=== PATIENT | male | born 1960 | race Caucasian/White ===

== ENCOUNTER 2021-04-08 08:12 | Inpatient (IN) ==
[2021-04-08] MEDS ORDERED: Morphine 4 MG/ML VIAL (1 ml) IV ONE ×2 (08:49→11:54)
[2021-04-08] MEDS ORDERED: Lactated Ringers 1000 ml BAG 1,000 ML IV ONE (08:49)
[2021-04-08 09:12] LABS: ABS Eosinophils 0.2 10^3/ul (0-0.6); ABS Lymphocytes 1.2 10^3/ul (1.0-4.8); ABS Monocytes 1.2 10^3/ul (0-0.8); ABS Neutrophils 10.9 10^3/ul (1.5-7.7); Eosinophil % 1.2 %; Hematocrit 38 % (42-52); Hemoglobin 12.8 g/dL (14.0-18.0); Lymphocyte % 8.7 %; Mean Corpuscular HGB Conc 34 g/dL (31-36); Mean Corpuscular Hemoglobin 29 pg (27-31); Mean Corpuscular Volume 86 fL (80-94); Mean Platelet Volume 7.7 fL (7.4-10.4); Platelet Count 406 10^3/uL (150-450); Red Blood Count 4.46 10^6 /uL (4.18-5.48); Red Cell Distribution Width 17 % (10-15); White Blood Count 13.5 10^3/uL (3.5-10.8)
[2021-04-08 09:19] LABS: Urine Appearance Cloudy; Urine Bilirubin Negative (Negative); Urine Blood Negative (Negative); Urine Color Amber; Urine Glucose Negative (Negative); Urine Ketones Negative (Negative); Urine Nitrite Negative (Negative); Urine Protein 1+(30 mg/dL) (Negative); Urine Specific Gravity 1.025 (1.002-1.030); Urine Urobilinogen Positive (Negative)
[2021-04-08 09:24] LABS: Urine Bacteria Absent (Absent); Urine Red Blood Cell Trace(0-2/hpf) (Absent); Urine Squamous Epithelial Cell Present (Absent); Urine White Blood Cell Trace(0-5/hpf) (Absent)
[2021-04-08 09:33] LABS: ALT 48 U/L (7-52); Albumin 3.3 g/dL (3.2-5.2); Albumin/Globulin Ratio 0.9 (1-3); Alkaline Phosphatase 93 U/L (35-149); Blood Urea Nitrogen 11 mg/dL (6-24); C Reactive Protein 202.83 mg/L (<8.01); CO2 Carbon Dioxide 27 mmol/L (22-32); Calcium 8.3 mg/dL (8.6-10.3); Chloride 100 mmol/L (101-111); EGFR African American 129.7 (>60); EGFR Non-African American 107.2 (>60); Globulin 3.7 g/dL (2-4); Glucose 113 mg/dL (70-100); Lipase 25 U/L (11.0-82.0); Sodium 137 mmol/L (135-145)
[2021-04-08 09:37] LABS: Anion Gap 10 mmol/L (2-11); Troponin I 0.03 ng/mL (<0.03)
[2021-04-08] MEDS ORDERED: Iohexol 300 (CONTRAST) 10 ML SDV IV ONE (09:40)
[2021-04-08 10:16] LABS: Potassium Redraw 3.1 mmol/L (3.5-5.0)
[2021-04-08] MEDS ORDERED: Piperacillin/Tazobac ADVAN 3.375 GM in NS 0.9% 100 ml BAG 100 ML IV ONE (11:21)
[2021-04-08] MEDS ORDERED: Heparin 5000 UNITS/ML 1 mL VIAL SUBCUT SCH (14:00)
[2021-04-08] MEDS: NS 0.9% 1000 ml BAG 1,000 ML IV SCH (18:04)
[2021-04-08] MEDS: Morphine 2 MG/ML SYRINGE IV PRN (18:04)
[2021-04-08] MEDS ORDERED: Zosyn per Pharmacy NOTE FOLLOW UP SCH (19:00)
[2021-04-08] MEDS ORDERED: ZOSYN 3.375 GM x ONE DOSE over 30 miuntes IV (19:30)
[2021-04-08] MEDS ORDERED: Potassium Chlor 20 meq TAB.ER PO ONE (19:32)
[2021-04-09] MEDS: ZOSYN 3.375 GM Q8H per EXTENDED INFUSION IV SCH ×3 (00:17→17:21)
[2021-04-09] MEDS: NS 0.9% 1000 ml BAG 1,000 ML IV SCH ×2 (05:25→14:15)
[2021-04-09 06:29] LABS: Hematocrit 34 % (42-52); Hemoglobin 11.3 g/dL (14.0-18.0); Mean Corpuscular HGB Conc 33 g/dL (31-36); Mean Corpuscular Hemoglobin 29 pg (27-31); Mean Corpuscular Volume 86 fL (80-94); Mean Platelet Volume 7.3 fL (7.4-10.4); Platelet Count 338 10^3/uL (150-450); Red Blood Count 3.96 10^6 /uL (4.18-5.48); Red Cell Distribution Width 17 % (10-15); White Blood Count 12.5 10^3/uL (3.5-10.8)
[2021-04-09 06:58] LABS: Anion Gap 9 mmol/L (2-11); Blood Urea Nitrogen 10 mg/dL (6-24); C Reactive Protein 202.75 mg/L (<8.01); CO2 Carbon Dioxide 27 mmol/L (22-32); Calcium 7.6 mg/dL (8.6-10.3); Chloride 101 mmol/L (101-111); EGFR African American 116.8 (>60); EGFR Non-African American 96.6 (>60); Glucose 97 mg/dL (70-100); Sodium 137 mmol/L (135-145)
[2021-04-09] MEDS: Aspirin EC 81 mg TAB.EC (enteric coated) PO SCH (08:03)
[2021-04-09] MEDS: Morphine 2 MG/ML SYRINGE IV PRN (08:18)
[2021-04-09] MEDS: KCL 20 MEQ/100 ML IVPREMIX 20 MEQ/100 ML BAG IV SCH ×2 (09:21→11:49)
[2021-04-09] MEDS ORDERED: HYDROmorphone 1 MG/1 ML SYRINGE IV SCH (14:00)
[2021-04-09] MEDS ORDERED: Potassium Chlor 20 meq TAB.ER PO ONE (16:34)
[2021-04-09 17:00] LABS: Total Iron Binding Capacity 148 mcg/dL (250-450); Transferrin 106 mg/dL (203-362)
[2021-04-09 17:04] LABS: % Iron Saturation 14 % (15-55); Iron < 20 ug/dL (50-212); Unsaturated Iron Binding < 133 ug/dL
[2021-04-09 19:32] LABS: ABS Eosinophils 0.1 10^3/ul (0-0.6); ABS Lymphocytes 0.9 10^3/ul (1.0-4.8); ABS Monocytes 0.7 10^3/ul (0-0.8); ABS Neutrophils 8.6 10^3/ul (1.5-7.7); Eosinophil % 0.6 %; Hematocrit 35 % (42-52); Hemoglobin 11.7 g/dL (14.0-18.0); Lymphocyte % 9.1 %; Mean Corpuscular HGB Conc 34 g/dL (31-36); Mean Corpuscular Hemoglobin 29 pg (27-31); Mean Corpuscular Volume 86 fL (80-94); Mean Platelet Volume 7.1 fL (7.4-10.4); Platelet Count 323 10^3/uL (150-450); Red Blood Count 4.03 10^6 /uL (4.18-5.48); Red Cell Distribution Width 17 % (10-15); White Blood Count 10.3 10^3/uL (3.5-10.8)
[2021-04-09 19:45] LABS: EGFR African American 116.8 (>60); EGFR Non-African American 96.6 (>60)
[2021-04-09 19:58] LABS: Activated Partial Thrombo Time 32.4 seconds (26.0-38.0); INR 1.41 (0.86-1.15)
[2021-04-09] MEDS: Heparin 5000 UNITS/ML 1 mL VIAL SUBCUT SCH (21:43)
[2021-04-09] MEDS: HYDROmorphone 1 MG/1 ML SYRINGE IV PRN (21:44)
[2021-04-10] MEDS: ZOSYN 3.375 GM Q8H per EXTENDED INFUSION IV SCH ×3 (02:03→18:07)
[2021-04-10] MEDS: Heparin 5000 UNITS/ML 1 mL VIAL SUBCUT SCH ×3 (06:09→21:59)
[2021-04-10] MEDS: HYDROmorphone 1 MG/1 ML SYRINGE IV PRN ×2 (06:15→19:39)
[2021-04-10 06:23] LABS: ABS Eosinophils 0.1 10^3/ul (0-0.6); ABS Lymphocytes 1.2 10^3/ul (1.0-4.8); ABS Monocytes 0.8 10^3/ul (0-0.8); ABS Neutrophils 7.7 10^3/ul (1.5-7.7); Eosinophil % 1.3 %; Hematocrit 34 % (42-52); Hemoglobin 11.3 g/dL (14.0-18.0); Lymphocyte % 11.8 %; Mean Corpuscular HGB Conc 33 g/dL (31-36); Mean Corpuscular Hemoglobin 29 pg (27-31); Mean Corpuscular Volume 87 fL (80-94); Mean Platelet Volume 7.1 fL (7.4-10.4); Platelet Count 306 10^3/uL (150-450); Red Blood Count 3.94 10^6 /uL (4.18-5.48); Red Cell Distribution Width 17 % (10-15); White Blood Count 9.8 10^3/uL (3.5-10.8)
[2021-04-10 06:47] LABS: C Reactive Protein 204.11 mg/L (<8.01); Calcium 7.7 mg/dL (8.6-10.3); EGFR African American 140.6 (>60); EGFR Non-African American 116.2 (>60); Potassium 3.1 mmol/L (3.5-5.0)
[2021-04-10] MEDS ORDERED: Potassium Chlor 20 meq TAB.ER PO ONE (07:30)
[2021-04-10] MEDS: Aspirin EC 81 mg TAB.EC (enteric coated) PO SCH (08:05)
[2021-04-10] MEDS: NS 0.9% 1000 ml BAG 1,000 ML IV SCH ×2 (08:10→22:07)
[2021-04-10] MEDS ORDERED: Perflutren Lipid Microsphere 3 ML VIAL ONE (10:17)
[2021-04-11] MEDS: ZOSYN 3.375 GM Q8H per EXTENDED INFUSION IV SCH ×3 (01:05→16:53)
[2021-04-11] MEDS: HYDROmorphone 1 MG/1 ML SYRINGE IV PRN ×3 (01:12→16:53)
[2021-04-11] MEDS: Heparin 5000 UNITS/ML 1 mL VIAL SUBCUT SCH ×3 (05:46→21:29)
[2021-04-11 06:25] LABS: ABS Eosinophils 0.1 10^3/ul (0-0.6); ABS Lymphocytes 1.4 10^3/ul (1.0-4.8); ABS Monocytes 0.6 10^3/ul (0-0.8); ABS Neutrophils 5.3 10^3/ul (1.5-7.7); Eosinophil % 1.1 %; Hematocrit 34 % (42-52); Hemoglobin 11.5 g/dL (14.0-18.0); Lymphocyte % 18.3 %; Mean Corpuscular HGB Conc 34 g/dL (31-36); Mean Corpuscular Hemoglobin 29 pg (27-31); Mean Corpuscular Volume 86 fL (80-94); Mean Platelet Volume 7.4 fL (7.4-10.4); Platelet Count 316 10^3/uL (150-450); Red Cell Distribution Width 17 % (10-15); White Blood Count 7.4 10^3/uL (3.5-10.8)
[2021-04-11 06:41] LABS: C Reactive Protein 155.4 mg/L (<8.01); Calcium 7.6 mg/dL (8.6-10.3); EGFR African American 120.3 (>60); EGFR Non-African American 99.4 (>60); Potassium 3.1 mmol/L (3.5-5.0)
[2021-04-11] MEDS ORDERED: Potassium Chlor 20 meq TAB.ER PO ONE (07:48)
[2021-04-11] MEDS: Aspirin EC 81 mg TAB.EC (enteric coated) PO SCH (08:00)
[2021-04-11] MEDS ORDERED: Iohexol 300 (CONTRAST) 10 ML SDV IV ONE (11:28)
[2021-04-11] MEDS: NS 0.9% 1000 ml BAG 1,000 ML IV SCH (16:53)
[2021-04-11] MEDS ORDERED: MORPHINE 30 MG PO PRN (18:13)
[2021-04-12] MEDS: HYDROcodone/ACETAMIN 5/325 mg TAB PO PRN ×4 (00:56→23:17)
[2021-04-12] MEDS: ZOSYN 3.375 GM Q8H per EXTENDED INFUSION IV SCH ×3 (00:57→17:04)
[2021-04-12 04:42] LABS: ABS Eosinophils 0.1 10^3/ul (0-0.6); ABS Lymphocytes 1.3 10^3/ul (1.0-4.8); ABS Monocytes 0.7 10^3/ul (0-0.8); Eosinophil % 1.5 %; Hematocrit 34 % (42-52); Hemoglobin 11.2 g/dL (14.0-18.0); Lymphocyte % 15.6 %; Mean Corpuscular HGB Conc 33 g/dL (31-36); Mean Corpuscular Hemoglobin 29 pg (27-31); Mean Corpuscular Volume 87 fL (80-94); Platelet Count 327 10^3/uL (150-450); Red Blood Count 3.93 10^6 /uL (4.18-5.48); Red Cell Distribution Width 17 % (10-15); White Blood Count 8.2 10^3/uL (3.5-10.8)
[2021-04-12] MEDS: Heparin 5000 UNITS/ML 1 mL VIAL SUBCUT SCH ×3 (06:38→23:18)
[2021-04-12] MEDS: Aspirin EC 81 mg TAB.EC (enteric coated) PO SCH (09:07)
[2021-04-12 09:12] LABS: Calcium 7.7 mg/dL (8.6-10.3); EGFR African American 123.9 (>60); EGFR Non-African American 102.4 (>60); Potassium 3.3 mmol/L (3.5-5.0)
[2021-04-12] MEDS: NS 0.9% 1000 ml BAG 1,000 ML IV SCH ×2 (09:12→17:04)
[2021-04-13] MEDS: ZOSYN 3.375 GM Q8H per EXTENDED INFUSION IV SCH ×3 (01:13→17:12)
[2021-04-13] MEDS: NS 0.9% 1000 ml BAG 1,000 ML IV SCH (01:31)
[2021-04-13] MEDS: HYDROcodone/ACETAMIN 5/325 mg TAB PO PRN ×2 (06:03→21:57)
[2021-04-13] MEDS: Heparin 5000 UNITS/ML 1 mL VIAL SUBCUT SCH ×3 (06:04→21:57)
[2021-04-13 06:38] LABS: ABS Eosinophils 0.1 10^3/ul (0-0.6); ABS Lymphocytes 1.3 10^3/ul (1.0-4.8); ABS Monocytes 0.8 10^3/ul (0-0.8); ABS Neutrophils 6.5 10^3/ul (1.5-7.7); Eosinophil % 1.2 %; Hematocrit 33 % (42-52); Hemoglobin 11.2 g/dL (14.0-18.0); Lymphocyte % 15.3 %; Mean Corpuscular HGB Conc 34 g/dL (31-36); Mean Corpuscular Hemoglobin 29 pg (27-31); Mean Corpuscular Volume 86 fL (80-94); Mean Platelet Volume 7.5 fL (7.4-10.4); Platelet Count 336 10^3/uL (150-450); Red Blood Count 3.89 10^6 /uL (4.18-5.48); Red Cell Distribution Width 17 % (10-15); White Blood Count 8.8 10^3/uL (3.5-10.8)
[2021-04-13 06:54] LABS: C Reactive Protein 117.15 mg/L (<8.01); Calcium 7.7 mg/dL (8.6-10.3); EGFR African American 115.2 (>60); EGFR Non-African American 95.2 (>60); Potassium 3.3 mmol/L (3.5-5.0)
[2021-04-13] MEDS ORDERED: HYDROcodone/ACETAMIN 5/325 mg TAB PO PRN (07:53)
[2021-04-13] MEDS ORDERED: Potassium Chlor 20 meq TAB.ER PO ONE (07:54)
[2021-04-13] MEDS: Aspirin EC 81 mg TAB.EC (enteric coated) PO SCH (09:15)
[2021-04-13] MEDS ORDERED: HYDROcodone/ACETAMIN 5/325 mg TAB PO ONE ×2 (15:00→15:02)
[2021-04-14] MEDS: ZOSYN 3.375 GM Q8H per EXTENDED INFUSION IV SCH ×3 (01:52→17:00)
[2021-04-14] MEDS: Heparin 5000 UNITS/ML 1 mL VIAL SUBCUT SCH ×3 (06:08→21:52)
[2021-04-14 06:28] LABS: ABS Eosinophils 0.1 10^3/ul (0-0.6); ABS Lymphocytes 1.3 10^3/ul (1.0-4.8); ABS Monocytes 0.7 10^3/ul (0-0.8); ABS Neutrophils 7.3 10^3/ul (1.5-7.7); Eosinophil % 1.3 %; Hematocrit 35 % (42-52); Hemoglobin 11.6 g/dL (14.0-18.0); Lymphocyte % 13.5 %; Mean Corpuscular HGB Conc 33 g/dL (31-36); Mean Corpuscular Hemoglobin 29 pg (27-31); Mean Corpuscular Volume 87 fL (80-94); Mean Platelet Volume 7.6 fL (7.4-10.4); Platelet Count 327 10^3/uL (150-450); Red Blood Count 4.02 10^6 /uL (4.18-5.48); Red Cell Distribution Width 17 % (10-15); White Blood Count 9.4 10^3/uL (3.5-10.8)
[2021-04-14] MEDS: HYDROcodone/ACETAMIN 5/325 mg TAB PO PRN ×3 (06:37→21:51)
[2021-04-14 06:43] LABS: C Reactive Protein 99.11 mg/L (<8.01); EGFR African American 104.8 (>60); EGFR Non-African American 86.6 (>60); Potassium 3.6 mmol/L (3.5-5.0)
[2021-04-14] MEDS: Aspirin EC 81 mg TAB.EC (enteric coated) PO SCH (08:44)
[2021-04-15] MEDS: ZOSYN 3.375 GM Q8H per EXTENDED INFUSION IV SCH ×3 (01:42→17:30)
[2021-04-15] MEDS: HYDROcodone/ACETAMIN 5/325 mg TAB PO PRN ×3 (05:57→21:04)
[2021-04-15] MEDS: Heparin 5000 UNITS/ML 1 mL VIAL SUBCUT SCH ×3 (05:58→21:05)
[2021-04-15 06:23] LABS: ABS Eosinophils 0.1 10^3/ul (0-0.6); ABS Lymphocytes 1.3 10^3/ul (1.0-4.8); ABS Monocytes 0.7 10^3/ul (0-0.8); ABS Neutrophils 8.1 10^3/ul (1.5-7.7); Hematocrit 37 % (42-52); Hemoglobin 12.2 g/dL (14.0-18.0); Lymphocyte % 12.7 %; Mean Corpuscular HGB Conc 33 g/dL (31-36); Mean Corpuscular Hemoglobin 29 pg (27-31); Mean Corpuscular Volume 87 fL (80-94); Mean Platelet Volume 7.2 fL (7.4-10.4); Platelet Count 359 10^3/uL (150-450); Red Blood Count 4.27 10^6 /uL (4.18-5.48); Red Cell Distribution Width 17 % (10-15); White Blood Count 10.3 10^3/uL (3.5-10.8)
[2021-04-15 06:44] LABS: EGFR African American 140.6 (>60); EGFR Non-African American 116.2 (>60); Potassium 3.6 mmol/L (3.5-5.0)
[2021-04-15] MEDS: Aspirin EC 81 mg TAB.EC (enteric coated) PO SCH (08:53)
[2021-04-15] MEDS ORDERED: COVID-19 VACCINE, MRNA(MODERNA)/PF 100 MCG/0.5 ML IM ONE (17:00)
[2021-04-16] MEDS: ZOSYN 3.375 GM Q8H per EXTENDED INFUSION IV SCH ×2 (01:41→08:57)
[2021-04-16] MEDS: HYDROcodone/ACETAMIN 5/325 mg TAB PO PRN ×2 (06:19→15:12)
[2021-04-16] MEDS: Heparin 5000 UNITS/ML 1 mL VIAL SUBCUT SCH ×3 (06:19→21:02)
[2021-04-16] MEDS: Aspirin EC 81 mg TAB.EC (enteric coated) PO SCH (09:00)
[2021-04-16] MEDS ORDERED: cefTRIAXone 2 GM ADDV.VIAL 2 GM in NS 0.9% 100 ml BAG 100 ML IV SCH ×2 (11:00→16:00)
[2021-04-17] MEDS: HYDROcodone/ACETAMIN 5/325 mg TAB PO PRN ×2 (00:19→08:13)
[2021-04-17] MEDS: Heparin 5000 UNITS/ML 1 mL VIAL SUBCUT SCH ×2 (06:24→13:59)
[2021-04-17] MEDS: Aspirin EC 81 mg TAB.EC (enteric coated) PO SCH (08:14)
[2021-04-17 11:28] VITALS: BP 128/80
== END 2021-04-17 14:58 | disposition swing bed (61) | DRG 372 ==
LOC: ED 08:12 → SUATTDRO 13:51 → SSU 13:51
PROVIDERS: ADMIT Internal Medicine; ATTEND Internal Medicine

== ENCOUNTER 2021-04-17 15:07 | Inpatient (IN) ==
[2021-04-17] MEDS ORDERED: Magnesium Hydroxide LIQ 30 ML UDC PO PRN (15:54)
[2021-04-17] MEDS: cefTRIAXone 2 GM ADDV.VIAL 2 GM in NS 0.9% 100 ml BAG 100 ML IV SCH (16:57)
[2021-04-17] MEDS: HYDROcodone/ACETAMIN 5/325 mg TAB PO PRN ×2 (16:57→23:23)
[2021-04-17] MEDS ORDERED: Iohexol 300 (CONTRAST) 10 ML SDV IV ONE (22:11)
[2021-04-17] MEDS: Enoxaparin 40 MG/0.4 ML SYR SUBCUT SCH (23:14)
[2021-04-18] MEDS: Aspirin EC 81 mg TAB.EC (enteric coated) PO SCH (09:39)
[2021-04-18] MEDS: HYDROcodone/ACETAMIN 5/325 mg TAB PO PRN ×2 (09:39→21:52)
[2021-04-18] MEDS: cefTRIAXone 2 GM ADDV.VIAL 2 GM in NS 0.9% 100 ml BAG 100 ML IV SCH (16:51)
[2021-04-18] MEDS: Enoxaparin 40 MG/0.4 ML SYR SUBCUT SCH (21:52)
[2021-04-19] MEDS: HYDROcodone/ACETAMIN 5/325 mg TAB PO PRN ×2 (08:33→18:04)
[2021-04-19] MEDS: Aspirin EC 81 mg TAB.EC (enteric coated) PO SCH (08:34)
[2021-04-19] MEDS ORDERED: Flu vaccine *QUAD* 2021-22* 0.5 ML SYRINGE IM ONE (15:00)
[2021-04-19] MEDS ORDERED: Pneumococcal Vac 23-Polyvalent IM ONE (15:00)
[2021-04-19] MEDS: cefTRIAXone 2 GM ADDV.VIAL 2 GM in NS 0.9% 100 ml BAG 100 ML IV SCH (16:18)
[2021-04-19] MEDS: Enoxaparin 40 MG/0.4 ML SYR SUBCUT SCH (21:40)
[2021-04-20] MEDS: HYDROcodone/ACETAMIN 5/325 mg TAB PO PRN ×3 (01:49→16:55)
[2021-04-20] MEDS: Aspirin EC 81 mg TAB.EC (enteric coated) PO SCH (08:22)
[2021-04-20] MEDS: cefTRIAXone 2 GM ADDV.VIAL 2 GM in NS 0.9% 100 ml BAG 100 ML IV SCH (16:16)
[2021-04-20] MEDS: Enoxaparin 40 MG/0.4 ML SYR SUBCUT SCH (21:42)
[2021-04-21] MEDS: HYDROcodone/ACETAMIN 5/325 mg TAB PO PRN ×3 (01:19→16:24)
[2021-04-21] MEDS: Aspirin EC 81 mg TAB.EC (enteric coated) PO SCH (08:23)
[2021-04-21] MEDS: cefTRIAXone 2 GM ADDV.VIAL 2 GM in NS 0.9% 100 ml BAG 100 ML IV SCH (16:25)
[2021-04-21] MEDS: Enoxaparin 40 MG/0.4 ML SYR SUBCUT SCH (20:13)
[2021-04-22] MEDS: HYDROcodone/ACETAMIN 5/325 mg TAB PO PRN ×4 (00:16→22:33)
[2021-04-22 05:19] LABS: ABS Eosinophils 0.1 10^3/ul (0-0.6); ABS Lymphocytes 1.4 10^3/ul (1.0-4.8); ABS Monocytes 0.9 10^3/ul (0-0.8); ABS Neutrophils 5.7 10^3/ul (1.5-7.7); Eosinophil % 1.5 %; Hematocrit 33 % (42-52); Hemoglobin 10.8 g/dL (14.0-18.0); Lymphocyte % 16.9 %; Mean Corpuscular HGB Conc 33 g/dL (31-36); Mean Corpuscular Hemoglobin 28 pg (27-31); Mean Corpuscular Volume 85 fL (80-94); Mean Platelet Volume 7.3 fL (7.4-10.4); Platelet Count 330 10^3/uL (150-450); Red Blood Count 3.87 10^6 /uL (4.18-5.48); Red Cell Distribution Width 18 % (10-15); White Blood Count 8.1 10^3/uL (3.5-10.8)
[2021-04-22 05:41] LABS: Albumin/Globulin Ratio 1.1 (1-3); C Reactive Protein 91.21 mg/L (<8.01); Calcium 8.2 mg/dL (8.6-10.3); Globulin 2.7 g/dL (2-4); Potassium 4.3 mmol/L (3.5-5.0); Total Bilirubin 0.4 mg/dL (0.2-1.0); Total Protein 5.7 g/dL (6.4-8.9)
[2021-04-22] MEDS: Aspirin EC 81 mg TAB.EC (enteric coated) PO SCH (07:28)
[2021-04-22] MEDS: cefTRIAXone 2 GM ADDV.VIAL 2 GM in NS 0.9% 100 ml BAG 100 ML IV SCH (17:18)
[2021-04-22] MEDS: Enoxaparin 40 MG/0.4 ML SYR SUBCUT SCH (22:19)
[2021-04-23] MEDS: Aspirin EC 81 mg TAB.EC (enteric coated) PO SCH (08:27)
[2021-04-23] MEDS: HYDROcodone/ACETAMIN 5/325 mg TAB PO PRN ×2 (11:20→20:09)
[2021-04-23] MEDS: cefTRIAXone 2 GM ADDV.VIAL 2 GM in NS 0.9% 100 ml BAG 100 ML IV SCH (17:19)
[2021-04-23 17:53] LABS: Urine Appearance Clear; Urine Bilirubin Negative (Negative); Urine Blood 1+ (Negative); Urine Color Yellow; Urine Glucose Negative (Negative); Urine Ketones Negative (Negative); Urine Nitrite Negative (Negative); Urine Protein Negative (Negative); Urine Specific Gravity 1.015 (1.002-1.030); Urine Urobilinogen Negative (Negative)
[2021-04-23 18:06] LABS: Urine Bacteria Absent (Absent); Urine Red Blood Cell Trace(0-2/hpf) (Absent); Urine White Blood Cell Trace(0-5/hpf) (Absent)
[2021-04-23] MEDS: Enoxaparin 40 MG/0.4 ML SYR SUBCUT SCH (20:10)
[2021-04-24] MEDS: HYDROcodone/ACETAMIN 5/325 mg TAB PO PRN ×2 (05:45→15:45)
[2021-04-24] MEDS: Aspirin EC 81 mg TAB.EC (enteric coated) PO SCH (08:28)
[2021-04-24] MEDS ORDERED: HYDROcodone/ACETAMIN 5/325 mg TAB PO PRN (15:59)
[2021-04-24] MEDS: cefTRIAXone 2 GM ADDV.VIAL 2 GM in NS 0.9% 100 ml BAG 100 ML IV SCH (16:56)
[2021-04-24] MEDS: Enoxaparin 40 MG/0.4 ML SYR SUBCUT SCH (22:51)
[2021-04-25 06:57] LABS: ABS Eosinophils 0.2 10^3/ul (0-0.6); ABS Lymphocytes 1.4 10^3/ul (1.0-4.8); ABS Monocytes 0.8 10^3/ul (0-0.8); Eosinophil % 1.7 %; Hematocrit 36 % (42-52); Hemoglobin 11.9 g/dL (14.0-18.0); Lymphocyte % 15.3 %; Mean Corpuscular HGB Conc 33 g/dL (31-36); Mean Corpuscular Hemoglobin 28 pg (27-31); Mean Corpuscular Volume 85 fL (80-94); Mean Platelet Volume 7.5 fL (7.4-10.4); Platelet Count 431 10^3/uL (150-450); Red Blood Count 4.25 10^6 /uL (4.18-5.48); Red Cell Distribution Width 18 % (10-15); White Blood Count 9.4 10^3/uL (3.5-10.8)
[2021-04-25 07:14] LABS: C Reactive Protein 55.26 mg/L (<8.01); Calcium 8.7 mg/dL (8.6-10.3); Potassium 4.7 mmol/L (3.5-5.0)
[2021-04-25] MEDS: Aspirin EC 81 mg TAB.EC (enteric coated) PO SCH (08:32)
[2021-04-25 13:13] LABS: Ferritin 405.5 ng/mL (24-336)
[2021-04-25] MEDS: cefTRIAXone 2 GM ADDV.VIAL 2 GM in NS 0.9% 100 ml BAG 100 ML IV SCH (17:39)
[2021-04-25] MEDS: Enoxaparin 40 MG/0.4 ML SYR SUBCUT SCH (21:58)
[2021-04-26] MEDS: Aspirin EC 81 mg TAB.EC (enteric coated) PO SCH (09:23)
[2021-04-26] MEDS: cefTRIAXone 2 GM ADDV.VIAL 2 GM in NS 0.9% 100 ml BAG 100 ML IV SCH (16:43)
[2021-04-26] MEDS: Enoxaparin 40 MG/0.4 ML SYR SUBCUT SCH (20:57)
[2021-04-27] MEDS: Aspirin EC 81 mg TAB.EC (enteric coated) PO SCH (08:39)
[2021-04-27] MEDS: cefTRIAXone 2 GM ADDV.VIAL 2 GM in NS 0.9% 100 ml BAG 100 ML IV SCH (16:51)
[2021-04-27] MEDS: Enoxaparin 40 MG/0.4 ML SYR SUBCUT SCH (21:29)
[2021-04-28] MEDS: Aspirin EC 81 mg TAB.EC (enteric coated) PO SCH (08:45)
[2021-04-28] MEDS: cefTRIAXone 2 GM ADDV.VIAL 2 GM in NS 0.9% 100 ml BAG 100 ML IV SCH (16:41)
[2021-04-28] MEDS: Enoxaparin 40 MG/0.4 ML SYR SUBCUT SCH (20:50)
[2021-04-29 06:12] LABS: ABS Eosinophils 0.2 10^3/ul (0-0.6); ABS Lymphocytes 1.6 10^3/ul (1.0-4.8); ABS Monocytes 0.7 10^3/ul (0-0.8); ABS Neutrophils 5.2 10^3/ul (1.5-7.7); Eosinophil % 2.5 %; Hematocrit 36 % (42-52); Hemoglobin 11.8 g/dL (14.0-18.0); Lymphocyte % 20.8 %; Mean Corpuscular HGB Conc 33 g/dL (31-36); Mean Corpuscular Hemoglobin 28 pg (27-31); Mean Corpuscular Volume 85 fL (80-94); Mean Platelet Volume 6.8 fL (7.4-10.4); Platelet Count 362 10^3/uL (150-450); Red Blood Count 4.23 10^6 /uL (4.18-5.48); Red Cell Distribution Width 18 % (10-15); White Blood Count 7.7 10^3/uL (3.5-10.8)
[2021-04-29 06:32] LABS: Albumin 3.2 g/dL (3.2-5.2); Albumin/Globulin Ratio 1.1 (1-3); C Reactive Protein 11.67 mg/L (<8.01); Calcium 8.6 mg/dL (8.6-10.3); Potassium 3.9 mmol/L (3.5-5.0); Total Bilirubin 0.4 mg/dL (0.2-1.0); Total Protein 6.2 g/dL (6.4-8.9)
[2021-04-29] MEDS: Aspirin EC 81 mg TAB.EC (enteric coated) PO SCH (09:09)
[2021-04-29] MEDS: cefTRIAXone 2 GM ADDV.VIAL 2 GM in NS 0.9% 100 ml BAG 100 ML IV SCH (17:16)
[2021-04-29] MEDS: Enoxaparin 40 MG/0.4 ML SYR SUBCUT SCH (21:11)
[2021-04-30] MEDS ORDERED: Iohexol 300 (CONTRAST) 10 ML SDV IV ONE (07:56)
[2021-04-30] MEDS: Aspirin EC 81 mg TAB.EC (enteric coated) PO SCH (10:14)
[2021-04-30] MEDS: cefTRIAXone 2 GM ADDV.VIAL 2 GM in NS 0.9% 100 ml BAG 100 ML IV SCH (16:32)
[2021-04-30] MEDS: Enoxaparin 40 MG/0.4 ML SYR SUBCUT SCH (20:56)
[2021-05-01] MEDS: Aspirin EC 81 mg TAB.EC (enteric coated) PO SCH (09:25)
[2021-05-01] MEDS: cefTRIAXone 2 GM ADDV.VIAL 2 GM in NS 0.9% 100 ml BAG 100 ML IV SCH (17:11)
[2021-05-01] MEDS: Enoxaparin 40 MG/0.4 ML SYR SUBCUT SCH (21:18)
[2021-05-02] MEDS: Aspirin EC 81 mg TAB.EC (enteric coated) PO SCH (08:29)
[2021-05-02] MEDS: cefTRIAXone 2 GM ADDV.VIAL 2 GM in NS 0.9% 100 ml BAG 100 ML IV SCH (17:20)
[2021-05-02] MEDS: Enoxaparin 40 MG/0.4 ML SYR SUBCUT SCH (20:31)
[2021-05-03] MEDS: Aspirin EC 81 mg TAB.EC (enteric coated) PO SCH (08:27)
[2021-05-03] MEDS: cefTRIAXone 2 GM ADDV.VIAL 2 GM in NS 0.9% 100 ml BAG 100 ML IV SCH (16:46)
[2021-05-03] MEDS: Enoxaparin 40 MG/0.4 ML SYR SUBCUT SCH (21:22)
[2021-05-04] MEDS: Aspirin EC 81 mg TAB.EC (enteric coated) PO SCH (08:06)
[2021-05-04] MEDS: cefTRIAXone 2 GM ADDV.VIAL 2 GM in NS 0.9% 100 ml BAG 100 ML IV SCH (16:58)
[2021-05-04] MEDS: Enoxaparin 40 MG/0.4 ML SYR SUBCUT SCH (21:31)
[2021-05-05 07:26] VITALS: BP 149/99
[2021-05-05] MEDS: Aspirin EC 81 mg TAB.EC (enteric coated) PO SCH (08:59)
[2021-05-05] MEDS ORDERED: Amoxicillin/Clavul 875/125 TAB (Augmentin 875 tab) PO SCH (21:00)
== END 2021-05-05 15:45 | disposition home or self-care (01) | DRG 372 ==
LOC: SSU 15:07 → SUATTDRO 15:07
PROVIDERS: ADMIT Internal Medicine; ATTEND Hospitalist